=== PATIENT | female | born 1960 | race Caucasian/White ===

== ENCOUNTER 2018-03-20 05:47 | Inpatient (IN) ==
[2018-03-20] MEDS ORDERED: Chlorhexidine Gluconate 2% 1 Pack (2 Cloths) TOPICAL ONE (06:10)
[2018-03-20] MEDS ORDERED: Metoprolol Tartrate 25 MG Tablet PO ONE (06:10)
[2018-03-20] MEDS ORDERED: ceFAZolin 1 GM Premix Inj 2 GM/100 ML PIGGYBACK IV.SIG ONE (06:49)
[2018-03-20] MEDS ORDERED: Thrombin Topical 20,000 UNIT Spray Kit TOPICAL ONE (06:49)
[2018-03-20] MEDS ORDERED: Heparin/NS PF Inj 500 ML ONE (06:49)
[2018-03-20] MEDS ORDERED: Heparin 10,000 UNITS/10 ML Vial (for IV use) ONE (06:50)
[2018-03-20] MEDS ORDERED: Protamine Sulfate Inj 50 MG/5 ML Vial ONE (06:50)
[2018-03-20] MEDS ORDERED: Sodium Chlor 0.9% Inj 500 ML IV.SIG SCH (07:00)
--- NOTE | 2018-03-20 07:43 | P.HPUP ---
The Pre-Admit History and Physical Examination regarding the above named patient was reviewed (including, but not limited to, vital signs, heart, lungs, co-morbid conditions), and upon re-examination it is noted that: the patient's condition has not significantly changed since the last examination.
[2018-03-20] MEDS ORDERED: Iohexol 300 MG/ML 50 ML Vial (for Rad Diag) IVCONTRAST ONE (11:11)
[2018-03-20] MEDS ORDERED: Bisacodyl 10 MG Supp RECTAL PRN (11:48)
[2018-03-20] MEDS ORDERED: fentaNYL Citrate Inj 100 MCG/2 ML Ampul ONE (12:01)
--- NOTE | 2018-03-20 12:13 | P.OP ---
Preoperative Diagnosis: Left lower extremity critical limb ischemia with rest pain Postoperative Diagnosis: Left lower extremity critical limb ischemia with rest pain Date of procedure: 03/20/18 Procedure: 1. Right common femoral femoral endarterectomy with pericardial patch angioplasty 2. Right superficial femoral artery, profunda femoral artery endarterectomy pericardial patch angioplasty. 3. Left common femoral artery endarterectomy pericardial patch angioplasty. 4. Left superficial femoral artery, profunda femoral artery endarterectomy pericardial patch angioplasty 5. Redo right to left femoral to femoral bypass using an 8 mm ringed PTFE graft. 6. AIF angiogram. 7. Right lower extremity second order angiogram. [facility] Surgeon: Carlos Eduardo Fleming MD Estimated blood loss (mL): 150 Operation and Findings: Findings 1. The infrarenal abdominal aorta, right common iliac artery, right external iliac artery were noted to be patent with no evidence of significant stenosis. 2. Successful bilateral femoral endarterectomy. 3. Successful right to left femoral to femoral bypass using an 8 mm ringed PTFE graft. There was a multiphasic pedal signals bilaterally at the end of the procedure. Description of the procedure The patient was taken to the operating room, laid supine on the OR table. After general trach anesthesia the patient was prepped and draped in the standard sterile fashion. Timeout was called with all members in the OR in agreement. A longitudinal incision was made in the left groin. Dissection was taken down through the subcutaneous tissues electrocautery. The common femoral artery superficial femoral artery profunda femoral artery and graft were all dissected. The occluded graft was divided. All vessels were encircled with Silastic loop. Now attention was turned to the right groin, incision was made on the previous scar and dissection was taken down through the subcutaneous tissues electrocautery. The graft, common femoral artery, external iliac artery , superficial femoral artery and profunda femoral artery are dissected and encircled Silastic loop. The graft was divided. The patient was heparinized and proximal distal control was obtained in the right vessels. The previously placed graft was removed and an arteriotomy extended cephalad and caudal on the common femoral artery and superficial femoral artery. Endarterectomy was performed and the artery was repaired using a pericardial patch that was cut to appropriate length and secured using Prolene suture in a running fashion. We accessed the right femoral artery using the Seldinger technique and a 5 Croatian sheath was placed. An AIF angiogram was performed after placing a catheter in the infrarenal abdominal aorta. And a catheter was placed in the right common femoral artery on the right lower extremity second order angiogram was performed. The graft was tunneled in the subcutaneous tissue. Proximal distal control was obtained on the right femoral vessels and the sheath was removed. An arteriotomy is created and the graft was cut that would be length. Anastomosis fashioned using 5-0 Prolene suture in running fashion. At this point attention was turned to the left groin. Proximal distal control was obtained. The previously placed graft was removed. An arthrotomy was extended into the superficial femoral artery. The femoral artery was divided proximally and the proximal occluded portion of it was ligated using a silk suture. An endarterectomy was performed. The graft was cut to appropriate length and an end-to-end anastomosis was performed using a 5-0 Prolene suture in running fashion. Hemostasis achieved in both groins. The groins were closed in multiple layers using Vicryl suture followed by Monocryl suture. Sandhya wound vacs were placed on the wound. Patient tolerated the procedure well and was taken to recovery unit in stable condition.
[2018-03-20] MEDS: Sod Chloride 0.9% Inj 1,000 ML IV.CONT SCH ×2 (12:15→22:44)
[2018-03-20] MEDS ORDERED: *morphine SULFATE 4 MG/ML PERIprocedure ONLY ONE (12:29)
[2018-03-20] MEDS: Morphine Inj 4 MG/ML Vial IV.PUSH PRN (13:45)
[2018-03-20] MEDS ORDERED: Sodium Chlor 0.9% Inj 500 ML IV.SIG ONE (20:00)
[2018-03-20] MEDS ORDERED: Sodium Chlor 0.9% Inj 500 ML IV.SIG STA (20:00)
[2018-03-20] MEDS: Gabapentin 300 MG Capsule PO SCH (20:07)
[2018-03-20] MEDS: Senna/Docusate Sodium 8.6/50 MG Tablet PO SCH (20:07)
[2018-03-20] MEDS: traZODone 100 MG Tablet PO SCH (22:44)
[2018-03-21 06:26] LABS: Hematocrit 27.5 % (35.0-46.0); Hemoglobin 9.3 gm/dL (11.6-15.3); Mean Corpuscular Hemoglobin 32.8 pg (27.0-34.0); Mean Corpuscular Volume 96.7 fL (80.0-100.0); Platelet Count 244 th/mm3 (150-450); Red Blood Count 2.84 mil/mm3 (4.00-5.30); Red Cell Distribution Width 16.7 % (11.6-17.2); White Blood Count 10.2 th/mm3 (4.0-11.0)
[2018-03-21] MEDS: Sod Chloride 0.9% Inj 1,000 ML IV.CONT SCH ×2 (06:41→18:52)
[2018-03-21 07:14] LABS: Anion Gap 4 meq/L (5-15); Blood Urea Nitrogen 7 mg/dL (7-18); Calcium 7.5 mg/dL (8.5-10.1); Carbon Dioxide 24.2 meq/L (21.0-32.0); Chloride 119 meq/L (98-107); Glomerular Filtration Rate Greater Than 89 mL/min (>89); Glucose,Random 91 mg/dL (74-106); Sodium 147 meq/L (136-145)
[2018-03-21] MEDS: Gabapentin 300 MG Capsule PO SCH ×2 (08:43→20:14)
[2018-03-21] MEDS: Morphine Inj 4 MG/ML Vial IV.PUSH PRN ×2 (08:44→17:33)
[2018-03-21] MEDS: Senna/Docusate Sodium 8.6/50 MG Tablet PO SCH ×2 (08:44→20:16)
--- NOTE | 2018-03-21 09:16 | P.PNVS ---
Subjective Post Op Day #: 1 Procedure: Bilateral femoral endarterectomy, femorofemoral bypass Subjective/Hospital Course: Hypotensive overnight, response to fluid boluses. Complaint of groin pain. Bilateral lower extremity pain resolved. Objective Vital Signs / I&O: Vital Signs 03/20/18 11:50 03/20/18 12:00 03/20/18 12:15 Temperature 97.7 F Pulse Rate 89 79 79 Respiratory Rate 12 12 14 Blood Pressure 114/59 L 103/55 L 103/58 L Pulse Oximetry 97 95 98 03/20/18 12:30 03/20/18 12:45 03/20/18 13:00 Temperature 97.4 F L Pulse Rate 82 80 84 Respiratory Rate 14 14 17 Blood Pressure 107/58 L 98/55 L 115/58 L Pulse Oximetry 98 98 98 03/20/18 13:30 03/20/18 13:45 03/20/18 14:00 Temperature Pulse Rate 96 H 96 H 93 H Respiratory Rate 15 15 15 Blood Pressure 104/64 106/72 107/63 Pulse Oximetry 98 97 98 03/20/18 14:15 03/20/18 14:30 03/20/18 15:00 Temperature 97.5 F L Pulse Rate 77 77 76 Respiratory Rate 15 15 15 Blood Pressure 101/49 L 96/54 L 77/46 L Pulse Oximetry 97 96 96 03/20/18 15:15 03/20/18 20:00 03/21/18 00:00 Temperature 95.7 F L 97.9 F Pulse Rate 69 67 75 Respiratory Rate 15 16 16 Blood Pressure 88/55 L 88/50 L 89/54 L Pulse Oximetry 94 L 91 L 95 03/21/18 04:00 Temperature Pulse Rate 77 Respiratory Rate 16 Blood Pressure 82/47 L Pulse Oximetry 95 Intake & Output 03/20/18 03/21/18 03/21/18 18:59 06:59 18:59 Intake Total 3915 / 3915 2915 / 2915 Output Total 1250 / 1250 1600 / 1600 Balance 2665 / 2665 1315 / 1315 Weight 63 kg Intake: IV 1665 / 1665 2435 / 2435 Heparin/NS PF Inj 500 ML @ 0 500 / 500 mls/hr .ROUTE .[facility] Rx#: [id number] NS Inj 1,000 ML @ 125 mls/hr IV 65 / 65 1935 / 1935 .CONT .Q8H [facility] Rx#:[id number] LR 1000 mL Inj 1,000 ML @ 30 1000 / 1000 mls/hr IV.SIG .Q24H [facility] Rx#: [id number] NS Inj 500 ML @ Wide Open IV. 500 / 500 SIG BOLUS STA Rx#:[id number] Ancef 1 GM Premix Inj 2 gm In 100 / 100 100 ml @ 0 mls/hr IV.SIG .STK- MED ONE Rx#:[id number] Oral 50 / 50 480 / 480 Anesthesia Amount 2200 / 2200 Output: Estimated Blood Loss 150 / 150 Urine Amount (Catheter) 1100 / 1100 1600 / 1600 Indwelling Urethral Catheter 1100 / 1100 1600 / 1600 Stool Amount (Stoma) 0 / 0 Right Lower Abdomen 0 / 0 Exam: Bilateral groins clean dry intact. Wound VAC in place. +1 palpable posterior tibial pulses bilaterally. Laboratory Results - last 24 hr 03/20/18 03/21/18 03/21/18 06:35 05:51 05:51 WBC 10.2 RBC 2.84 L Hgb 9.3 L Hct 27.5 L MCV 96.7 MCH 32.8 MCHC 34.0 RDW 16.7 Plt Count 244 MPV 9.0 Sodium 147 H Potassium 4.0 Chloride 119 H Carbon Dioxide 24.2 Anion Gap 4 L BUN 7 Creatinine 0.35 L Estimated GFR Greater than 89 Random Glucose 91 Calcium 7.5 L MTS Gel Crossmatch See Detail Assessment and Plan - Assessment (1) Critical lower limb ischemia Code(s): I99.8 - Other disorder of circulatory system Status: Acute - Plan Status post bilateral femoral endarterectomy, femorofemoral bypass postop day #1 Pain control Out of bed DC Hurley, Hep-Lock IV fluids will start Coumadin postop day #3
[2018-03-21] MEDS: Enoxaparin Inj 30 MG/0.3 ML Syringe SQ SCH (12:55)
[2018-03-21] MEDS: traZODone 100 MG Tablet PO SCH (20:15)
[2018-03-22 04:08] LABS: Hematocrit 27.9 % (35.0-46.0); Hemoglobin 9.6 gm/dL (11.6-15.3); Mean Corpuscular HGB Conc 34.3 % (32.0-36.0); Mean Corpuscular Hemoglobin 32.7 pg (27.0-34.0); Mean Corpuscular Volume 95.1 fL (80.0-100.0); Mean Platelet Volume 8.7 fL (7.0-11.0); Platelet Count 241 th/mm3 (150-450); Red Blood Count 2.94 mil/mm3 (4.00-5.30); Red Cell Distribution Width 16.9 % (11.6-17.2); White Blood Count 12.3 th/mm3 (4.0-11.0)
[2018-03-22 04:33] LABS: Anion Gap 6 meq/L (5-15); Blood Urea Nitrogen 8 mg/dL (7-18); Calcium 8.2 mg/dL (8.5-10.1); Carbon Dioxide 27.9 meq/L (21.0-32.0); Chloride 108 meq/L (98-107); Glomerular Filtration Rate Greater Than 89 mL/min (>89); Glucose,Random 97 mg/dL (74-106); Potassium 3.3 meq/L (3.5-5.1); Sodium 142 meq/L (136-145)
--- NOTE | 2018-03-22 08:27 | P.PNVS ---
Subjective Post Op Day #: 2 Procedure: Bilateral femoral endarterectomy, femorofemoral bypass Subjective/Hospital Course: bp ok, no more hypotension has been getting OOB to void without difficulty c/o B groin pain but no foot pain Objective Vital Signs / I&O: Vital Signs 03/21/18 09:00 03/21/18 10:00 03/21/18 11:00 Temperature Pulse Rate 74 76 76 Respiratory Rate Blood Pressure Pulse Oximetry 03/21/18 12:00 03/21/18 13:00 03/21/18 14:00 Temperature 98.0 F Pulse Rate 88 76 76 Respiratory Rate 18 Blood Pressure 82/51 L Pulse Oximetry 96 03/21/18 15:00 03/21/18 16:00 03/21/18 17:00 Temperature 98.0 F Pulse Rate 77 78 78 Respiratory Rate 18 Blood Pressure 117/65 Pulse Oximetry 96 03/21/18 20:00 03/21/18 20:02 03/21/18 22:42 Temperature 98.8 F Pulse Rate 72 78 92 H Respiratory Rate 18 Blood Pressure 106/54 L Pulse Oximetry 95 03/22/18 00:19 03/22/18 04:00 03/22/18 07:00 Temperature 98.2 F 98 F Pulse Rate 77 81 80 Respiratory Rate 20 19 Blood Pressure 133/63 110/55 L Pulse Oximetry 95 96 Intake & Output 03/21/18 03/22/18 03/22/18 18:59 06:59 18:59 Intake Total 960 / 960 480 / 480 Output Total 1000 / 1000 2400 / 2400 Balance -40 / -40 -1920 / -1920 Weight 63.1 kg Intake: Oral 960 / 960 480 / 480 Output: Urine Amount (Catheter) 1000 / 1000 2400 / 2400 Indwelling Urethral Catheter 1000 / 1000 2400 / 2400 Other: Date of Last Bowel Movement 03/21/18 Exam: alert, no distress B groin Prevena in place, groins soft palpable PT bilaterally feet warm and motor intact Laboratory Results - last 24 hr 03/22/18 03/22/18 03:52 03:52 WBC 12.3 H RBC 2.94 L Hgb 9.6 L Hct 27.9 L MCV 95.1 MCH 32.7 MCHC 34.3 RDW 16.9 Plt Count 241 MPV 8.7 Sodium 142 Potassium 3.3 L Chloride 108 H D Carbon Dioxide 27.9 Anion Gap 6 BUN 8 Creatinine 0.46 L Estimated GFR Greater than 89 Random Glucose 97 Calcium 8.2 L Assessment and Plan - Assessment (1) Critical lower limb ischemia Code(s): I99.8 - Other disorder of circulatory system Status: Acute - Plan POD#2 s/p B groin reconstruction and fem-fem bypass 1. continue OOB/PT 2. restart coumadin tomorrow (POD#3) 3. Repleted K today and recheck tomorrow Discharge Planning: likely Friday (POD#4)
[2018-03-22] MEDS: Senna/Docusate Sodium 8.6/50 MG Tablet PO SCH ×2 (08:54→21:20)
[2018-03-22] MEDS: Gabapentin 300 MG Capsule PO SCH ×2 (08:54→20:56)
[2018-03-22] MEDS: Enoxaparin Inj 30 MG/0.3 ML Syringe SQ SCH (12:12)
[2018-03-22] MEDS: Morphine Inj 4 MG/ML Vial IV.PUSH PRN ×2 (16:45→20:56)
[2018-03-22] MEDS: traZODone 100 MG Tablet PO SCH (20:56)
[2018-03-23 04:48] LABS: Hematocrit 32.6 % (35.0-46.0); Hemoglobin 11.2 gm/dL (11.6-15.3); Mean Corpuscular HGB Conc 34.4 % (32.0-36.0); Mean Corpuscular Hemoglobin 32.8 pg (27.0-34.0); Mean Corpuscular Volume 95.2 fL (80.0-100.0); Mean Platelet Volume 8.4 fL (7.0-11.0); Platelet Count 275 th/mm3 (150-450); Red Blood Count 3.42 mil/mm3 (4.00-5.30); Red Cell Distribution Width 16.6 % (11.6-17.2)
[2018-03-23] MEDS: Morphine Inj 4 MG/ML Vial IV.PUSH PRN (05:02)
[2018-03-23 05:13] LABS: Anion Gap 7 meq/L (5-15); Blood Urea Nitrogen 7 mg/dL (7-18); Calcium 8.6 mg/dL (8.5-10.1); Carbon Dioxide 26.5 meq/L (21.0-32.0); Chloride 104 meq/L (98-107); Glomerular Filtration Rate Greater Than 89 mL/min (>89); Glucose,Random 92 mg/dL (74-106); Potassium 3.6 meq/L (3.5-5.1); Sodium 137 meq/L (136-145)
[2018-03-23] MEDS: Senna/Docusate Sodium 8.6/50 MG Tablet PO SCH ×2 (09:09→21:02)
[2018-03-23] MEDS: Gabapentin 300 MG Capsule PO SCH ×2 (09:09→21:02)
[2018-03-23] MEDS: Enoxaparin Inj 60 MG/0.6 ML Syringe SQ SCH ×2 (10:08→21:02)
--- NOTE | 2018-03-23 10:20 | P.PNVS ---
Subjective Post Op Day #: 3 Procedure: Bilateral femoral endarterectomy, femorofemoral bypass Subjective/Hospital Course: 57/F Alert in NAD/Speech clear Pain controlled Pt hypotensive (asymptomatic) w/o c/o chest pain, SOB, weakness or dizziness Pt ambulating well w/o complaints of claudication Pt reports mild L LE paresthesias Bilateral groins soft w/o hematoma or swelling Objective Vital Signs / I&O: Vital Signs 03/22/18 10:00 03/22/18 11:00 03/22/18 12:00 Temperature 98.6 F Pulse Rate 82 76 82 Respiratory Rate 20 Blood Pressure 120/68 Pulse Oximetry 96 03/22/18 13:00 03/22/18 14:00 03/22/18 15:00 Temperature 98.4 F Pulse Rate 84 82 80 Respiratory Rate 20 Blood Pressure 112/60 Pulse Oximetry 96 03/22/18 16:00 03/22/18 17:00 03/22/18 18:00 Temperature Pulse Rate 82 82 85 Respiratory Rate Blood Pressure Pulse Oximetry 03/22/18 19:00 03/22/18 20:00 03/22/18 20:11 Temperature 98.8 F Pulse Rate 102 H 93 H Respiratory Rate 16 17 Blood Pressure 85/49 L Pulse Oximetry 96 03/22/18 21:00 03/22/18 21:21 03/22/18 22:00 Temperature Pulse Rate 79 83 Respiratory Rate 5 L Blood Pressure Pulse Oximetry 03/22/18 23:00 03/23/18 00:00 03/23/18 01:00 Temperature Pulse Rate 85 85 92 H Respiratory Rate 15 Blood Pressure 80/50 L 72/42 L Pulse Oximetry 96 03/23/18 02:00 03/23/18 03:00 03/23/18 03:43 Temperature Pulse Rate 87 92 H 97 H Respiratory Rate 18 Blood Pressure 86/55 L Pulse Oximetry 96 03/23/18 05:00 03/23/18 05:14 Temperature Pulse Rate 74 67 Respiratory Rate Blood Pressure Pulse Oximetry Intake & Output 03/22/18 03/23/18 03/23/18 18:59 06:59 18:59 Intake Total 975 / 975 240 / 240 Output Total 300 / 300 Balance 975 / 975 -60 / -60 Weight 62 kg Intake: Oral 975 / 975 240 / 240 Output: Urine 300 / 300 Other: # Voids 6 # Bowel Movements 0 Exam: GENERAL: Alert in NAD/GCS 15/Speech Clear SKIN: B LE Warm and dry w/ motor intact CARDIOVASCULAR: NSR on CM/Regular rate and rhythm/Pt w/o murmurs, gallops, or rubs RESPIRATORY: Breath sounds equal bilaterally. No accessory muscle use. GASTROINTESTINAL: Abdomen soft, non-tender, nondistended. MUSCULOSKELETAL: No cyanosis, or edema. Palpable RIGHT DP/PT 2+ palpable LEFT DP/PT 2+ B groin wound vacs intact w/o hematoma or swelling Laboratory Results - last 24 hr 03/23/18 03/23/18 04:33 04:33 WBC 10.0 RBC 3.42 L Hgb 11.2 L Hct 32.6 L MCV 95.2 MCH 32.8 MCHC 34.4 RDW 16.6 Plt Count 275 MPV 8.4 Sodium 137 Potassium 3.6 Chloride 104 Carbon Dioxide 26.5 Anion Gap 7 BUN 7 Creatinine 0.50 Estimated GFR Greater than 89 Random Glucose 92 Calcium 8.6 Assessment and Plan - Assessment (1) Critical lower limb ischemia Code(s): I99.8 - Other disorder of circulatory system Status: Acute - Plan 57/F S/p B groin reconstruction and fem-fem bypass POD 3 Pt hypotensive (asymptomatic)/Probable medication induced/adjusted pain medication regimen Plan Start Warfarin today Bridge w/ therapeutic Lovenox Continue OOB/PT Continue pain control D/C planning Elizabeth Iniguez NP [facility] [phone] Discharge Planning: likely Friday (POD#4)
[2018-03-23 13:16] LABS: INR 1.1 Ratio; Prothrombin Time 10.7 sec (9.8-11.6)
[2018-03-23] MEDS: traZODone 100 MG Tablet PO SCH (21:03)
[2018-03-24 01:19] VITALS: O2SAT 96
--- NOTE | 2018-03-24 07:56 | P.PNVS ---
Subjective Post Op Day #: 4 Procedure: Bilateral femoral endarterectomy, femorofemoral bypass Subjective/Hospital Course: doing well this am tolerating diet Ambulating without difficulties pain is well controlled Objective Vital Signs / I&O: Vital Signs 03/23/18 08:00 03/23/18 09:00 03/23/18 10:00 Temperature Pulse Rate 88 80 84 Respiratory Rate Blood Pressure Pulse Oximetry 03/23/18 10:05 03/23/18 10:56 03/23/18 11:42 Temperature Pulse Rate 88 Respiratory Rate 16 16 Blood Pressure Pulse Oximetry 03/23/18 12:00 03/23/18 13:00 03/23/18 13:59 Temperature 98.1 F Pulse Rate 87 86 75 Respiratory Rate 18 Blood Pressure 102/63 Pulse Oximetry 95 03/23/18 15:00 03/23/18 16:00 03/23/18 17:00 Temperature 98.0 F Pulse Rate 80 90 86 Respiratory Rate 18 Blood Pressure 104/55 L Pulse Oximetry 97 03/23/18 17:38 03/23/18 18:00 03/23/18 19:00 Temperature Pulse Rate 87 93 H Respiratory Rate 16 Blood Pressure Pulse Oximetry 03/23/18 19:31 03/23/18 21:00 03/23/18 22:00 Temperature 98.1 F Pulse Rate 94 H 96 H 100 H Respiratory Rate 18 Blood Pressure 83/51 L Pulse Oximetry 94 L 03/23/18 22:53 03/23/18 23:00 03/24/18 00:00 Temperature 98.3 F Pulse Rate 85 86 Respiratory Rate 18 18 Blood Pressure 88/52 L Pulse Oximetry 96 03/24/18 01:00 03/24/18 01:20 03/24/18 02:00 Temperature Pulse Rate 87 75 Respiratory Rate 18 Blood Pressure Pulse Oximetry 03/24/18 03:00 03/24/18 03:42 03/24/18 04:53 Temperature Pulse Rate 81 83 73 Respiratory Rate 17 Blood Pressure Pulse Oximetry 03/24/18 07:00 Temperature Pulse Rate 79 Respiratory Rate Blood Pressure Pulse Oximetry Intake & Output 03/23/18 03/24/18 03/24/18 18:59 06:59 18:59 Intake Total 1720 / 1720 240 / 240 Output Total 900 / 900 Balance 820 / 820 240 / 240 Intake: IV 1000 / 1000 Oral 720 / 720 240 / 240 Output: Urine 900 / 900 Other: # Voids 4 Exam: +1 palpable PT pulses BL Wound VAC CDI Laboratory Results - last 24 hr 03/23/18 12:42 PT 10.7 INR 1.1 Assessment and Plan - Assessment (1) Critical lower limb ischemia Code(s): I99.8 - Other disorder of circulatory system Status: Acute - Plan 57/F S/p B groin reconstruction and fem-fem bypass POD 3 DC home today on coumadin FU Friday for VAC change Discharge Planning: likely Friday (POD#4)
[2018-03-24] MEDS: Enoxaparin Inj 60 MG/0.6 ML Syringe SQ SCH (08:31)
[2018-03-24 08:32] VITALS: RESP 16
[2018-03-24] MEDS: Gabapentin 300 MG Capsule PO SCH (08:32)
[2018-03-24] MEDS: Senna/Docusate Sodium 8.6/50 MG Tablet PO SCH (08:32)
[2018-03-24 09:12] VITALS: BP 106/64; TEMP 98.1
[2018-03-24 09:20] VITALS: PULSE 100
== END 2018-03-24 10:09 | disposition home or self-care (01) | DRG 254 ==
LOC: HSDI 05:47 → HCPC 13:45
PROVIDERS: ADMIT Surgery; ATTEND Surgery
CPT/HCPCS: 36415; 36430; 71020; 71046; 80048; 85027; 85610; 86850; 86900; 86901; 86923; 93005; 97161; A4646; J0131; J0690; J1644; J1650; J2250; J2270; J2720; J3010; J3370; J7030; J7040; J7120; P9016; Q9949; Q9967